=== PATIENT | female | born 1950 | race African-American/Black ===

== ENCOUNTER 2018-12-06 10:11 | Inpatient (IN) ==
[2018-12-06] MEDS ORDERED: BISACODYL 5 MG TABLET PO PRN (16:06)
[2018-12-06] MEDS ORDERED: ACETAMINOPHEN 325 MG TABLET PO PRN (16:06)
[2018-12-06] MEDS ORDERED: ALBUTEROL/IPRATROPIUM 3 ML NEB RESP TX PRN (16:06)
[2018-12-06] MEDS ORDERED: PIPERACILLIN/TAZOBACTAM 3,375 MG in SODIUM CHLORIDE 0.9% 100 ML IV SCH (16:30)
[2018-12-06 16:37] LABS: Basophils # 0.1 10*3/uL (0.0-0.2); Basophils % 0.6 % (0.0-0.8); Eosinophils # 0.1 10*3/uL (0.0-0.87); Eosinophils % 0.3 % (0.00-10.9); Hematocrit 31.7 VOL% (35.7-47.0); Hemoglobin 10.4 GM/DL (12.0-16.0); Immature Granulocytes % 2.5 %; Lymphocytes # 1.3 10*3/uL (1.4-4.0); Lymphocytes % 8.2 % (21.3-54.2); Mean Corpuscular HGB Conc 32.8 GM/DL (32-36); Mean Corpuscular Volume 89.3 FL (87-102); Monocytes % 11.3 % (1.7-12.7); NRBC # 0.02 10*3/uL; Neutrophils % 77.1 % (38.7-73.9); Platelet Count 266 T/CUMM (130-400); Red Blood Count 3.55 MC/CUMM (3.8-5.5); Red Cell Distribution Width 14.4 % (9.3-17.3); White Blood Count 15.8 T/CUMM (4-12)
[2018-12-06 16:49] LABS: Albumin 2.3 G/DL (3.4-5.0); Bilirubin,Total 1.1 MG/DL (0.2-1.0); Calcium 8.4 MG/DL (8.5-10.1); Osmolality,Calculated 273.7 MOS/KG (273-304); Total Protein 7.1 G/DL (6.4-8.3)
[2018-12-06] MEDS ORDERED: LACTATED RINGERS 500 ML IV ONE (17:43)
[2018-12-06] MEDS: LACTATED RINGERS 1,000 ML IV SCH ×2 (17:44→21:46)
[2018-12-06 17:55] LABS: Band Neutrophils 14 % (0-10); Lymphocytes 7 % (20-55); Myelocytes 8 %; Platelet Estimate Normal; Segmented Neutrophils 62 % (50-85)
[2018-12-06 17:56] LABS: Anisocytosis 1+; Burr Cells 1+; Poikilocytosis 1+; Polychromasia Few
[2018-12-06 17:57] LABS: Total Cells Counted 100
[2018-12-06] MEDS ORDERED: ALBUMIN 5% 12.5 GM/250 ML VIAL IV ONE (18:59)
[2018-12-06] MEDS ORDERED: PROPOFOL 1,000 MG/100 ML BOTTLE IV ONE (20:02)
[2018-12-06] MEDS ORDERED: HYDROmorphone 2 MG/1 ML VIAL IV PRN (20:09)
[2018-12-06] MEDS ORDERED: SEVOFLURANE 1 UNIT/15 MINUTE INH ONE (20:24)
[2018-12-06] MEDS ORDERED: PROPOFOL 200 MG/20 ML VIAL IV ONE (20:24)
[2018-12-06] MEDS ORDERED: MIDAZOLAM 2 MG/2 ML VIAL ONE (20:25)
[2018-12-06] MEDS ORDERED: fentaNYL 100 MCG/2 ML VIAL ONE (20:25)
[2018-12-06] MEDS ORDERED: ACETAMINOPHEN 1,000 MG/100 ML VIAL IV ONE (20:25)
[2018-12-06] MEDS ORDERED: LACTATED RINGERS 1,000 ML IV ONE (20:25)
[2018-12-06] MEDS ORDERED: ROCURONIUM 100 MG/10 ML VIAL IV ONE (20:25)
[2018-12-06] MEDS ORDERED: SUCCINYLCHOLINE 200 MG/10 ML VIAL ONE (20:25)
[2018-12-06] MEDS ORDERED: PHENYLEPHRINE 1 MG/10 ML SYRINGE IV ONE (20:25)
[2018-12-06] MEDS ORDERED: SODIUM CHLORIDE 0.9% 1,000 ML IV ONE (20:25)
[2018-12-06] MEDS: PROPOFOL 1,000 MG/100 ML BOTTLE IV SCH (20:28)
[2018-12-06 20:37] LABS: Apearance,Urine CLEAR (Clear); Bilirubin,Urine Negative (Negative); Blood, Urine Negative (Negative); Glucose,Urine (UA) Negative (Negative); Hyaline Casts,Urine 3 /LPF (0-3); Ketones,Urine 20 mg/dL (Negative); Mucus,Urine Occasional /LPF (Occasional); Nitrite,Urine Negative (Negative); Protein,Urine 30 MG/DL; RBC,Urine 5 /HPF (0-4); Urine Color Yellow (Yellow); Urine Specific Gravity > 1.060 (1.001-1.035)
[2018-12-06 20:42] LABS: ABG Base Excess -2.5 MMOL/L (-2.5-2.5); ABG HCO3 22.4 MMOL/L (20-26); ABG PCO2 31.8 MM HG (35-48); ABG PH 7.428 (7.35-7.45); ABG TCO2 18.6 MMOL/L (23-27); Allen Test Positive; Pt O2 Delivery Device Ventilator
[2018-12-06 21:44] LABS: Hematocrit 31.5 VOL% (35.7-47.0); Hemoglobin 9.9 GM/DL (12.0-16.0)
[2018-12-06] MEDS: POTASSIUM CHLORIDE RIDER 10 MEQ in PREMIX 1 EACH IV PRN ×2 (21:46→22:59)
[2018-12-06] MEDS: ERTAPENEM 1,000 MG in SODIUM CHLORIDE 0.9% 100 ML IV SCH (22:50)
[2018-12-07] MEDS: POTASSIUM CHLORIDE RIDER 10 MEQ in PREMIX 1 EACH IV PRN ×9 (00:05→16:54)
[2018-12-07 03:26] LABS: ABG Base Excess -1.9 MMOL/L (-2.5-2.5); ABG HCO3 22.8 MMOL/L (20-26); ABG Oxygen Saturation 99.7 % (95-100); ABG PCO2 32.4 MM HG (35-48); ABG PH 7.432 (7.35-7.45); ABG TCO2 19.3 MMOL/L (23-27); Allen Test Positive; Pt O2 Delivery Device Ventilator
[2018-12-07 04:53] LABS: Basophils # 0.1 10*3/uL (0.0-0.2); Basophils % 0.6 % (0.0-0.8); Eosinophils # 0.1 10*3/uL (0.0-0.87); Eosinophils % 0.4 % (0.00-10.9); Hematocrit 31.6 VOL% (35.7-47.0); Immature Granulocytes Absolute 0.31 #; Lymphocytes # 1.2 10*3/uL (1.4-4.0); Lymphocytes % 7.3 % (21.3-54.2); Mean Corpuscular HGB Conc 31.6 GM/DL (32-36); Mean Corpuscular Volume 91.3 FL (87-102); Mean Platelet Volume 9.9 FL (9.6-12.0); Monocytes % 8.8 % (1.7-12.7); Neutrophils % 80.9 % (38.7-73.9); Platelet Count 244 T/CUMM (130-400); Red Blood Count 3.46 MC/CUMM (3.8-5.5); Red Cell Distribution Width 14.5 % (9.3-17.3); White Blood Count 15.8 T/CUMM (4-12)
[2018-12-07 05:16] LABS: Calcium 8.1 MG/DL (8.5-10.1); Osmolality,Calculated 277.3 MOS/KG (273-304)
[2018-12-07 05:44] LABS: Band Neutrophils 13 % (0-10); Lymphocytes 5 % (20-55); Myelocytes 1 %; Segmented Neutrophils 77 % (50-85); Total Cells Counted 100
[2018-12-07 05:45] LABS: Anisocytosis 1+; Burr Cells 1+; Hypochromasia 1+; Microcytosis 1+; Ovalocytes 1+; Platelet Estimate Adequate
[2018-12-07] MEDS: LACTATED RINGERS 1,000 ML IV SCH ×3 (05:56→22:39)
[2018-12-07] MEDS: PROPOFOL 1,000 MG/100 ML BOTTLE IV SCH (07:34)
[2018-12-07] MEDS: KETOROLAC 15 MG/1 ML VIAL IV PRN ×2 (07:35→21:10)
[2018-12-07] MEDS: PANTOPRAZOLE 40 MG TABLET PO SCH (08:10)
[2018-12-07 09:21] LABS: ABG Base Excess -1.8 MMOL/L (-2.5-2.5); ABG Oxygen Saturation 99.3 % (95-100); ABG PCO2 32.9 MM HG (35-48); ABG PH 7.431 (7.35-7.45); Allen Test Positive; Pt O2 Delivery Device Ventilator
[2018-12-07 12:06] LABS: Hematocrit 30.5 VOL% (35.7-47.0); Hemoglobin 9.7 GM/DL (12.0-16.0)
[2018-12-07] MEDS ORDERED: SODIUM HYPOCHLORITE 0.25% IRRIG 473 ML BOTTLE TOP PRN (14:57)
[2018-12-07] MEDS: HYDROmorphone 2 MG/1 ML VIAL IV PRN (15:26)
[2018-12-07] MEDS: ERTAPENEM 1,000 MG in SODIUM CHLORIDE 0.9% 100 ML IV SCH (21:10)
[2018-12-08] MEDS: LACTATED RINGERS 1,000 ML IV SCH ×2 (06:18→19:06)
[2018-12-08 07:54] LABS: Basophils % 0.2 % (0.0-0.8); Eosinophils # 0.4 10*3/uL (0.0-0.87); Eosinophils % 2.4 % (0.00-10.9); Hematocrit 28.1 VOL% (35.7-47.0); Hemoglobin 9.3 GM/DL (12.0-16.0); Immature Granulocytes % 1.6 %; Immature Granulocytes Absolute 0.28 #; Lymphocytes # 1.4 10*3/uL (1.4-4.0); Mean Corpuscular HGB Conc 33.1 GM/DL (32-36); Mean Corpuscular Volume 88.6 FL (87-102); Mean Platelet Volume 9.8 FL (9.6-12.0); Monocytes % 9.1 % (1.7-12.7); Neutrophils % 78.7 % (38.7-73.9); Platelet Count 279 T/CUMM (130-400); Red Blood Count 3.17 MC/CUMM (3.8-5.5); Red Cell Distribution Width 14.6 % (9.3-17.3); White Blood Count 17.2 T/CUMM (4-12)
[2018-12-08 08:12] LABS: Eosinophils 5 % (0-10); Hypochromasia Slight; Lymphocytes 8 % (20-55); Ovalocytes Slight; Platelet Estimate Adequate; Segmented Neutrophils 77 % (50-85); Total Cells Counted 100
[2018-12-08 08:13] LABS: Microcytosis Slight
[2018-12-08 08:22] LABS: Albumin 1.9 G/DL (3.4-5.0); Bilirubin,Total 0.6 MG/DL (0.2-1.0); Calcium 8.1 MG/DL (8.5-10.1); Osmolality,Calculated 276.3 MOS/KG (273-304)
[2018-12-08] MEDS: PANTOPRAZOLE 40 MG TABLET PO SCH (09:08)
[2018-12-08] MEDS: HYDROmorphone 2 MG/1 ML VIAL IV PRN ×4 (09:08→18:15)
[2018-12-08] MEDS ORDERED: GLUCAGON 1 MG VIAL IV PRN (14:59)
[2018-12-08] MEDS ORDERED: DEXTROSE 50% 25 GM/50 ML VIAL IV ONE (15:53)
[2018-12-08] MEDS ORDERED: SEVOFLURANE 1 UNIT/15 MINUTE INH ONE (17:51)
[2018-12-08] MEDS ORDERED: PROPOFOL 200 MG/20 ML VIAL IV ONE (17:51)
[2018-12-08] MEDS ORDERED: PHENYLEPHRINE 1 MG/10 ML SYRINGE IV ONE (17:52)
[2018-12-08] MEDS ORDERED: NEOSTIGMINE 10 MG/10 ML VIAL ONE (17:52)
[2018-12-08] MEDS ORDERED: ROCURONIUM 100 MG/10 ML VIAL IV ONE (17:52)
[2018-12-08] MEDS ORDERED: MIDAZOLAM 2 MG/2 ML VIAL ONE (17:52)
[2018-12-08] MEDS ORDERED: SUCCINYLCHOLINE 200 MG/10 ML VIAL ONE (17:52)
[2018-12-08] MEDS ORDERED: fentaNYL 100 MCG/2 ML VIAL ONE (17:52)
[2018-12-08] MEDS ORDERED: GLYCOPYRROLATE 0.4 MG/2 ML VIAL ONE (17:52)
[2018-12-08] MEDS ORDERED: ONDANSETRON 4 MG/2 ML VIAL IV PRN (18:03)
[2018-12-08] MEDS: POTASSIUM CHLORIDE RIDER 10 MEQ in PREMIX 1 EACH IV PRN (18:29)
[2018-12-08] MEDS: LEVOTHYROXINE 125 MCG TABLET PO SCH (19:03)
[2018-12-08] MEDS: DEXT 5% NACL 0.45% KCL 20 MEQ 20 MEQ/1,000 ML BAG IV SCH (19:45)
[2018-12-08] MEDS: ERTAPENEM 1,000 MG in SODIUM CHLORIDE 0.9% 100 ML IV SCH (21:15)
[2018-12-09] MEDS: HYDROmorphone 2 MG/1 ML VIAL IV PRN ×3 (03:15→20:52)
[2018-12-09 04:03] LABS: Basophils # 0.1 10*3/uL (0.0-0.2); Basophils % 0.3 % (0.0-0.8); Eosinophils # 0.2 10*3/uL (0.0-0.87); Eosinophils % 1.1 % (0.00-10.9); Hematocrit 31.5 VOL% (35.7-47.0); Hemoglobin 10.1 GM/DL (12.0-16.0); Immature Granulocytes % 1.3 %; Immature Granulocytes Absolute 0.19 #; Lymphocytes # 1.2 10*3/uL (1.4-4.0); Lymphocytes % 7.9 % (21.3-54.2); Mean Corpuscular HGB Conc 32.1 GM/DL (32-36); Mean Corpuscular Volume 89.7 FL (87-102); Mean Platelet Volume 9.3 FL (9.6-12.0); Monocytes % 9.7 % (1.7-12.7); NRBC # 0.03 10*3/uL; Neutrophils % 79.7 % (38.7-73.9); Platelet Count 314 T/CUMM (130-400); Red Blood Count 3.51 MC/CUMM (3.8-5.5); Red Cell Distribution Width 14.8 % (9.3-17.3); White Blood Count 14.9 T/CUMM (4-12)
[2018-12-09 04:36] LABS: Albumin 1.9 G/DL (3.4-5.0); Bilirubin,Total 1.1 MG/DL (0.2-1.0); Calcium 7.6 MG/DL (8.5-10.1); Osmolality,Calculated 275.5 MOS/KG (273-304); Total Protein 5.8 G/DL (6.4-8.3)
[2018-12-09 04:51] LABS: Anisocytosis Slight; Microcytosis Slight; Ovalocytes Slight; Polychromasia Slight
[2018-12-09 04:52] LABS: Platelet Estimate Normal
[2018-12-09] MEDS: DEXT 5% NACL 0.45% KCL 20 MEQ 20 MEQ/1,000 ML BAG IV SCH ×2 (05:49→17:00)
[2018-12-09] MEDS: LEVOTHYROXINE 125 MCG TABLET PO SCH (05:54)
[2018-12-09] MEDS: PANTOPRAZOLE 40 MG TABLET PO SCH (08:04)
[2018-12-09] MEDS ORDERED: LACTATED RINGERS 500 ML IV ONE (10:55)
[2018-12-09] MEDS ORDERED: DEXTROSE 50% 25 GM/50 ML VIAL IV PRN (15:12)
[2018-12-09] MEDS ORDERED: TRACE ELEMENTS (5) 1 ML, MULTIVITAMIN INJ 10 ML in AMINO ACIDS/DEXT/LYTES 5-15% 2,000 ML IV SCH ×2 (15:30→17:00)
[2018-12-09] MEDS: FAT EMULSION 20% 250 ML IV SCH (16:45)
[2018-12-09] MEDS: INSULIN REGULAR 100 UNIT/ML SUBCUT SCH (18:15)
[2018-12-09] MEDS: ERTAPENEM 1,000 MG in SODIUM CHLORIDE 0.9% 100 ML IV SCH (20:57)
[2018-12-10] MEDS: DEXT 5% NACL 0.45% KCL 20 MEQ 20 MEQ/1,000 ML BAG IV SCH ×3 (01:10→19:22)
[2018-12-10] MEDS: INSULIN REGULAR 100 UNIT/ML SUBCUT SCH ×5 (01:10→23:58)
[2018-12-10 05:04] LABS: Basophils % 0.3 % (0.0-0.8); Eosinophils # 0.4 10*3/uL (0.0-0.87); Hematocrit 27.6 VOL% (35.7-47.0); Hemoglobin 8.9 GM/DL (12.0-16.0); Immature Granulocytes % 1.8 %; Immature Granulocytes Absolute 0.22 #; Lymphocytes # 1.5 10*3/uL (1.4-4.0); Lymphocytes % 12.3 % (21.3-54.2); Mean Corpuscular HGB Conc 32.2 GM/DL (32-36); Mean Corpuscular Volume 90.2 FL (87-102); Mean Platelet Volume 10.1 FL (9.6-12.0); Monocytes % 9.8 % (1.7-12.7); Neutrophils % 72.8 % (38.7-73.9); Platelet Count 301 T/CUMM (130-400); Red Blood Count 3.06 MC/CUMM (3.8-5.5); Red Cell Distribution Width 14.7 % (9.3-17.3)
[2018-12-10 05:38] LABS: Prealbumin 3.4 MG/DL (20-40)
[2018-12-10] MEDS: POTASSIUM CHLORIDE RIDER 10 MEQ in PREMIX 1 EACH IV PRN ×2 (06:05→06:39)
[2018-12-10 06:07] LABS: Eosinophils 3 % (0-10); Lymphocytes 9 % (20-55); Nucleated Red Blood Cells 1 (0-5); Platelet Estimate Normal; Segmented Neutrophils 84 % (50-85); Total Cells Counted 100
[2018-12-10 07:14] LABS: Calcium 7.3 MG/DL (8.5-10.1); Osmolality,Calculated 277.4 MOS/KG (273-304)
[2018-12-10] MEDS: LEVOTHYROXINE 125 MCG TABLET PO SCH (07:14)
[2018-12-10] MEDS: LEVOTHYROXINE 100 MCG VIAL IV SCH (07:18)
[2018-12-10] MEDS ORDERED: MAGNESIUM SULF RIDER 1 GM in PREMIX 1 EACH IV ONE ×2 (07:30→09:00)
[2018-12-10] MEDS: HYDROmorphone 2 MG/1 ML VIAL IV PRN ×4 (08:10→21:48)
[2018-12-10] MEDS: PANTOPRAZOLE 40 MG TABLET PO SCH (08:28)
[2018-12-10] MEDS ORDERED: SODIUM PHOSPHATE INJ 15 MMOL in SODIUM CHLORIDE 0.9% 250 ML IV ONE (10:00)
[2018-12-10] MEDS: FAT EMULSION 20% 250 ML IV SCH (15:23)
[2018-12-10] MEDS: TRACE ELEMENTS (5) 1 ML, MULTIVITAMIN INJ 10 ML in AMINO ACIDS/DEXT/LYTES 5-15% 2,000 ML IV SCH (18:10)
[2018-12-10] MEDS: ERTAPENEM 1,000 MG in SODIUM CHLORIDE 0.9% 100 ML IV SCH (21:01)
[2018-12-11] MEDS: DEXT 5% NACL 0.45% KCL 20 MEQ 20 MEQ/1,000 ML BAG IV SCH ×3 (03:17→13:27)
[2018-12-11 05:45] LABS: Calcium 7.6 MG/DL (8.5-10.1); Osmolality,Calculated 278.3 MOS/KG (273-304)
[2018-12-11] MEDS: INSULIN REGULAR 100 UNIT/ML SUBCUT SCH ×4 (07:27→23:28)
[2018-12-11] MEDS: LEVOTHYROXINE 100 MCG VIAL IV SCH (07:44)
[2018-12-11] MEDS: PANTOPRAZOLE 40 MG TABLET PO SCH (09:06)
[2018-12-11] MEDS: HYDROmorphone 2 MG/1 ML VIAL IV PRN ×3 (09:21→21:02)
[2018-12-11] MEDS ORDERED: SODIUM PHOSPHATE INJ 15 MMOL in SODIUM CHLORIDE 0.9% 250 ML IV ONE (12:00)
[2018-12-11] MEDS: FAT EMULSION 20% 250 ML IV SCH (16:23)
[2018-12-11] MEDS: TRACE ELEMENTS (5) 1 ML, MULTIVITAMIN INJ 10 ML in AMINO ACIDS/DEXT/LYTES 5-15% 2,000 ML IV SCH (17:39)
[2018-12-11] MEDS: ERTAPENEM 1,000 MG in SODIUM CHLORIDE 0.9% 100 ML IV SCH (21:02)
[2018-12-11] MEDS ORDERED: ZALEPLON 5 MG CAPSULE PO PRN (23:04)
[2018-12-12] MEDS: DEXT 5% NACL 0.45% KCL 20 MEQ 20 MEQ/1,000 ML BAG IV SCH ×4 (00:33→19:25)
[2018-12-12] MEDS: HYDROmorphone 2 MG/1 ML VIAL IV PRN ×6 (01:32→21:47)
[2018-12-12 05:20] LABS: Calcium 7.9 MG/DL (8.5-10.1); Osmolality,Calculated 278.4 MOS/KG (273-304)
[2018-12-12] MEDS: INSULIN REGULAR 100 UNIT/ML SUBCUT SCH ×3 (07:13→17:29)
[2018-12-12] MEDS: LEVOTHYROXINE 100 MCG VIAL IV SCH (07:14)
[2018-12-12] MEDS: PANTOPRAZOLE 40 MG TABLET PO SCH (08:28)
[2018-12-12] MEDS: FAT EMULSION 20% 250 ML IV SCH (14:26)
[2018-12-12] MEDS: TRACE ELEMENTS (5) 1 ML, MULTIVITAMIN INJ 10 ML in AMINO ACIDS/DEXT/LYTES 5-15% 2,000 ML IV SCH (17:14)
[2018-12-12] MEDS: ONDANSETRON 4 MG/2 ML VIAL IV PRN (20:40)
[2018-12-12] MEDS: ERTAPENEM 1,000 MG in SODIUM CHLORIDE 0.9% 100 ML IV SCH (21:45)
[2018-12-13] MEDS: INSULIN REGULAR 100 UNIT/ML SUBCUT SCH ×4 (00:57→18:09)
[2018-12-13] MEDS: PROMETHAZINE 25 MG/1 ML VIAL IM PRN ×2 (01:24→21:20)
[2018-12-13] MEDS: HYDROmorphone 2 MG/1 ML VIAL IV PRN ×5 (01:24→21:15)
[2018-12-13] MEDS: DEXT 5% NACL 0.45% KCL 20 MEQ 20 MEQ/1,000 ML BAG IV SCH ×4 (04:03→21:25)
[2018-12-13 05:15] LABS: Basophils # 0.1 10*3/uL (0.0-0.2); Basophils % 0.4 % (0.0-0.8); Eosinophils # 0.2 10*3/uL (0.0-0.87); Eosinophils % 0.9 % (0.00-10.9); Hematocrit 27.5 VOL% (35.7-47.0); Hemoglobin 8.9 GM/DL (12.0-16.0); Immature Granulocytes % 2.4 %; Immature Granulocytes Absolute 0.43 #; Lymphocytes # 2.3 10*3/uL (1.4-4.0); Lymphocytes % 12.6 % (21.3-54.2); Mean Corpuscular HGB Conc 32.4 GM/DL (32-36); Mean Corpuscular Volume 89.3 FL (87-102); Mean Platelet Volume 9.7 FL (9.6-12.0); Monocytes % 8.6 % (1.7-12.7); NRBC # 0.03 10*3/uL; Neutrophils % 75.1 % (38.7-73.9); Platelet Count 447 T/CUMM (130-400); Red Blood Count 3.08 MC/CUMM (3.8-5.5); Red Cell Distribution Width 14.7 % (9.3-17.3); White Blood Count 18.1 T/CUMM (4-12)
[2018-12-13 05:47] LABS: Calcium 8.1 MG/DL (8.5-10.1); Osmolality,Calculated 276.7 MOS/KG (273-304); Prealbumin 6.3 MG/DL (20-40)
[2018-12-13 06:04] LABS: Eosinophils 5 % (0-10); Hypochromasia 1+; Lymphocytes 7 % (20-55); Microcytosis 1+; Platelet Estimate Normal; Polychromasia Few; Segmented Neutrophils 82 % (50-85); Target Cells Few; Total Cells Counted 100
[2018-12-13] MEDS: LEVOTHYROXINE 100 MCG VIAL IV SCH (06:42)
[2018-12-13] MEDS: PANTOPRAZOLE 40 MG TABLET PO SCH (09:08)
[2018-12-13] MEDS ORDERED: ALBUMIN 5% 25 GM in PREMIX 1 EACH IV ONE (12:47)
[2018-12-13] MEDS: FAT EMULSION 20% 250 ML IV SCH (14:20)
[2018-12-13] MEDS: ERTAPENEM 1,000 MG in SODIUM CHLORIDE 0.9% 100 ML IV SCH (20:30)
[2018-12-14] MEDS: INSULIN REGULAR 100 UNIT/ML SUBCUT SCH ×4 (00:59→18:29)
[2018-12-14] MEDS: DEXT 5% NACL 0.45% KCL 20 MEQ 20 MEQ/1,000 ML BAG IV SCH ×3 (05:04→21:30)
[2018-12-14] MEDS: LEVOTHYROXINE 100 MCG VIAL IV SCH (06:20)
[2018-12-14 06:53] LABS: Basophils # 0.1 10*3/uL (0.0-0.2); Basophils % 0.4 % (0.0-0.8); Eosinophils # 0.3 10*3/uL (0.0-0.87); Eosinophils % 1.2 % (0.00-10.9); Hematocrit 28.1 VOL% (35.7-47.0); Hemoglobin 8.8 GM/DL (12.0-16.0); Immature Granulocytes % 2.1 %; Immature Granulocytes Absolute 0.44 #; Lymphocytes # 2.1 10*3/uL (1.4-4.0); Mean Corpuscular HGB Conc 31.3 GM/DL (32-36); Mean Corpuscular Volume 92.1 FL (87-102); Mean Platelet Volume 9.4 FL (9.6-12.0); Monocytes % 7.7 % (1.7-12.7); NRBC # 0.02 10*3/uL; Neutrophils % 78.6 % (38.7-73.9); Platelet Count 444 T/CUMM (130-400); Red Blood Count 3.05 MC/CUMM (3.8-5.5); Red Cell Distribution Width 15.1 % (9.3-17.3); White Blood Count 20.9 T/CUMM (4-12)
[2018-12-14 07:19] LABS: Band Neutrophils 2 % (0-10); Eosinophils 1 % (0-10); Lymphocytes 10 % (20-55); Segmented Neutrophils 84 % (50-85); Total Cells Counted 100
[2018-12-14 07:20] LABS: Hypochromasia 1+; Microcytosis 1+; Platelet Estimate Adequate
[2018-12-14 07:29] LABS: Calcium 8.2 MG/DL (8.5-10.1)
[2018-12-14] MEDS: HYDROmorphone 2 MG/1 ML VIAL IV PRN ×6 (08:05→21:20)
[2018-12-14] MEDS: ONDANSETRON 4 MG/2 ML VIAL IV PRN (08:06)
[2018-12-14] MEDS: PANTOPRAZOLE 40 MG TABLET PO SCH (08:49)
[2018-12-14] MEDS: FAT EMULSION 20% 250 ML IV SCH (13:15)
[2018-12-14] MEDS: DEXTROSE 10% 1,000 ML IV PRN (13:16)
[2018-12-14] MEDS ORDERED: KETOROLAC 15 MG/1 ML VIAL IV ONE (18:33)
[2018-12-14] MEDS: TRACE ELEMENTS (5) 1 ML, MULTIVITAMIN INJ 10 ML in AMINO ACIDS/DEXT/LYTES 5-15% 2,000 ML IV SCH (20:05)
[2018-12-15] MEDS: HYDROmorphone 2 MG/1 ML VIAL IV PRN ×5 (00:37→23:50)
[2018-12-15] MEDS: DEXTROSE 10% 1,000 ML IV PRN ×2 (00:39→06:12)
[2018-12-15] MEDS: INSULIN REGULAR 100 UNIT/ML SUBCUT SCH ×4 (00:39→19:00)
[2018-12-15] MEDS: TRACE ELEMENTS (5) 1 ML, MULTIVITAMIN INJ 10 ML in AMINO ACIDS/DEXT/LYTES 5-15% 2,000 ML IV SCH (00:42)
[2018-12-15] MEDS: DEXT 5% NACL 0.45% KCL 20 MEQ 20 MEQ/1,000 ML BAG IV SCH ×3 (05:28→22:59)
[2018-12-15] MEDS: LEVOTHYROXINE 100 MCG VIAL IV SCH (06:10)
[2018-12-15 09:45] LABS: Calcium 8.1 MG/DL (8.5-10.1); Osmolality,Calculated 264.4 MOS/KG (273-304)
[2018-12-15] MEDS ORDERED: TRACE ELEMENTS (5) 1 ML, MULTIVITAMIN INJ 10 ML in AMINO ACIDS/DEXT/LYTES 5-15% 2,000 ML IV SCH (10:00)
[2018-12-15] MEDS: PANTOPRAZOLE 40 MG TABLET PO SCH (10:38)
[2018-12-15] MEDS: FAT EMULSION 20% 250 ML IV SCH (14:25)
[2018-12-15] MEDS ORDERED: ACETAMINOPHEN 650 MG SUPP RECTAL PRN (20:27)
[2018-12-16] MEDS: INSULIN REGULAR 100 UNIT/ML SUBCUT SCH ×4 (00:59→18:37)
[2018-12-16 05:26] LABS: Calcium 7.8 MG/DL (8.5-10.1); Osmolality,Calculated 272.1 MOS/KG (273-304)
[2018-12-16] MEDS: DEXT 5% NACL 0.45% KCL 20 MEQ 20 MEQ/1,000 ML BAG IV SCH ×2 (06:49→14:45)
[2018-12-16] MEDS: LEVOTHYROXINE 100 MCG VIAL IV SCH (06:52)
[2018-12-16 07:08] LABS: Basophils # 0.1 10*3/uL (0.0-0.2); Basophils % 0.4 % (0.0-0.8); Eosinophils # 0.3 10*3/uL (0.0-0.87); Eosinophils % 1.5 % (0.00-10.9); Hematocrit 25.4 VOL% (35.7-47.0); Hemoglobin 7.9 GM/DL (12.0-16.0); Immature Granulocytes % 1.6 %; Immature Granulocytes Absolute 0.27 #; Lymphocytes % 12.2 % (21.3-54.2); Mean Corpuscular HGB Conc 31.1 GM/DL (32-36); Mean Corpuscular Volume 92.4 FL (87-102); Monocytes % 10.3 % (1.7-12.7); NRBC # 0.02 10*3/uL; Platelet Count 505 T/CUMM (130-400); Red Blood Count 2.75 MC/CUMM (3.8-5.5); White Blood Count 16.8 T/CUMM (4-12)
[2018-12-16] MEDS: HYDROmorphone 2 MG/1 ML VIAL IV PRN ×3 (09:56→20:43)
[2018-12-16] MEDS ORDERED: FAMOTIDINE 20 MG/2 ML VIAL IV SCH (11:30)
[2018-12-16] MEDS: FAT EMULSION 20% 250 ML IV SCH (14:47)
[2018-12-16] MEDS ORDERED: TRACE ELEMENTS (5) 1 ML, MULTIVITAMIN INJ 10 ML, POTASSIUM CHLORIDE INJ 40 MEQ in AMINO... IV SCH (17:00)
[2018-12-16 22:22] VITALS: BP 106/78
== END 2018-12-16 08:50 | disposition hospice, home (50) | DRG 857 ==
LOC: EDBD → N.3E 14:40 → EDBD 14:40 → EDSEX 14:40 → N.CC 21:26 → N.3E 12-10 13:24
PROVIDERS: ADMIT Surgery; ATTEND Surgery